=== PATIENT | female | born 1980 | race African-American/Black ===

== ENCOUNTER 2021-02-09 22:26 | Emergency (ER) | payer OTHER ==
[~2021-02-09] VITALS: Ht 167.6 cm; Wt 86.4 kg
[2021-02-09] MEDS ORDERED: LIDOCAINE 1%-EPI 1:100K, 20ML SQ ONE (23:00)
--- NOTE | 2021-02-09 23:19 | NUR ---
PT PRESENTS TO THE ER FOR A LACERATION TO HER RIGHT KNEE, PT STATES SHE IS STAYING AT A [facility] AND SHE TRIPPED OVER HER SANDAL AND THEN HER KNEE HIT THE CORNER OF A WALL WHICH GAVE HER THE LACERATION
[2021-02-09] MEDS ORDERED: LIDOCAINE 1%-EPI 1:100K, 20ML ONE (23:26)
[2021-02-09] MEDS ORDERED: ACETAMINOPHEN 500 MG TABLET ONE (23:47)
[2021-02-10] MEDS ORDERED: ACETAMINOPHEN 500 MG TABLET PO ONE
[2021-02-10] MEDS ORDERED: BACITRACIN ZINC OINT 500U/GM, 0.9 GM ONE (00:30)
[2021-02-10 00:54] VITALS: BP 129/83
== END 2021-02-10 00:57 | disposition home or self-care (01) ==
LOC: ED 22:45
DX: S81.011A Laceration without foreign body, right knee, initial encounter (principal); S80.01XA Contusion of right knee, initial encounter; W01.0XXA Fall on same level from slipping, tripping and stumbling without subsequent striking against object, initial encounter; Y93.89 Activity, other specified; Y92.410 Unspecified street and highway as the place of occurrence of the external cause; Y99.8 Other external cause status
CPT/HCPCS: 12004; 99283